=== PATIENT | female | born 1965 | race Caucasian/White ===

== ENCOUNTER 2019-05-16 16:00 | Outpatient (CLI) | payer OTHER, SELFPAY ==
--- NOTE | ~2019-05-16 | XR_ITS ---
EXAMINATION: XR chest 2V DATE: 05/16/2019 16:45 INDICATION: Hypertension TECHNIQUE: PA and lateral views of the chest are obtained. COMPARISON: None available FINDINGS: The lungs are free of acute opacities. A calcified nodule of the left lower lobe is consist ent with old granulomatous disease. There is no pleural effusion or pneumothorax. The cardiomediastin al silhouette is normal. There is moderate thoracic spondylosis. IMPRESSION: 1. No acute cardiopulmonary abnormality. Reviewed, dictated and finalized at location A. 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
[2019-05-16 16:38] LABS: Basophils Percent Auto 0.2 % (0.2-1.2); Eosinophils Absolute Auto 0.2 K/mm3 (0-0.3); Eosinophils Percent Auto 2.5 % (0-4.4); Hematocrit 40.6 % (37.0-47.0); Immature Granulocyte Absolute 0.02 K/mm3 (0.00-0.031); Immature Granulocyte Percent A 0.2 % (0-0.5); Lymphocytes Absolute Auto 2.96 K/mm3 (0.9-3.2); Lymphocytes Percent Auto 32.5 % (18.3-44.2); Mean Corpuscular Volume 87.3 fl (80-100); Mean Platelet Volume 11.8 fl (7.4-10.4); Monocytes Absolute Auto 0.7 K/mm3 (0.1-0.6); Monocytes Percent Auto 7.4 % (2.6-8.5); Neutrophils Absolute Auto 5.2 K/mm3 (1.3-6.7); Neutrophils Percent Auto 57.2 % (45.5-73.1); Platelet Count Result 310 k/mm3 (150-375); Red Blood Count 4.65 M/mm3 (4.2-5.4); Red Cell Distribution Width 14.1 % (11.5-14.5); White Blood Count 9.1 K/mm3 (4.5-10.0)
[2019-05-16 16:53] LABS: Alanine Aminotransferase 20 U/L (4-35); Albumin Level 4.1 g/dL (3.5-5.1); Alkaline Phosphatase 82 U/L (38-126); Aspartate Amino Transferase 21 U/L (14-36); Bilirubin,Total 0.7 mg/dL (0.2-1.3); Blood Urea Nitrogen 16 mg/dL (7-17); Calcium 9.2 mg/dL (8.4-10.2); Carbon Dioxide 23 mmol/L (22-30); Chloride 105 mmol/L (98-107); Estimated Glomerular Filt Rate > 60; Glucose 87 mg/dL (65-105); Sodium 138 mmol/L (137-145)
== END 2019-05-16 16:01 | disposition home or self-care (01) ==
PROVIDERS: PCP Family Medicine; Visit Provider Nurse Practitioner
DX: Z01.818 Encounter for other preprocedural examination (principal)
CPT/HCPCS: 36415; 71046; 80053; 85025

== ENCOUNTER 2019-06-05 12:27 | Emergency (ER) | payer OTHER, SELFPAY ==
[2019-06-05 12:42] VITALS: BP 146/90; PULSE 100; RESP 20; TEMP 36.2; O2SAT 100
--- NOTE | 2019-06-05 13:01 | ED.GENADULT ---
HPI - General Adult General Stated complaint: Left side pain when breaths Time Seen by Provider: 06/05/19 13:01 Source: patient and family History of Present Illness HPI narrative: Patient presents with left upper sided pain. Patient states the pain is 10 out of 10 and worse with inspiration. Patient states that she had tendon surgery 8 days ago to left lower ankle. Patient states shortness of breath and left-sided chest pain started 4 days ago. Patient states she is short of breath with exertion and has pain with inspiration. Patient states sometimes at night she is unable to get comfortable due to the pain in her left upper back. Patient denies any chest pain. Patient takes a baby aspirin daily and is not on any other blood thinners. Related Data Home Medications Medication Instructions Recorded Confirmed No Home Medications 04/30/19 04/30/19 Allergies Allergy/AdvReac Type Severity Reaction Status Date / Time No Known Allergies Allergy Unverified 07/10/16 11:54 Review of Systems Review of Systems: Narrative: CONSTITUTIONAL: Denies fever, chills, or sweats. EYES: Denies visual changes, redness, or discharge. ENT: Denies rhinorrhea, congestion, sore throat, or otalgia. CARDIOVASCULAR: Denies chest pain, palpitations, or edema. RESPIRATORY: Denies cough or dyspnea. GASTROINTESTINAL: Denies abdominal pain, nausea, vomiting, or diarrhea. GENITOURINARY: Denies dysuria or hematuria. SKIN: Denies rash or itching. MUSCULOSKELETAL: Denies back pain, joint pain, or myalgia. NEUROLOGIC: Denies headache, numbness, or weakness. PSYCHIATRIC: Denies anxiety or depression. All systems reviewed & are unremarkable except as noted in HPI and below PMFSH Family History Family History Grandparent Diabetes mellitus Family history of cardiovascular disease Social History Social History Smoking status: Never smoker Alcohol intake: current Comments At time of signature, agree with nursing past medical, surgical, social and family history. There is no relevant family history pertinent to the presenting complaint Exam Narrative: Exam Narrative: GENERAL: Well-appearing, well-nourished, and in no acute distress. HEAD: Normocephalic, atraumatic. EYES: PERRLA and EOMI. ENT: Nares clear, no rhinorrhea or epistaxis. Mucous membranes moist. NECK: Supple. CHEST: Clear to auscultation. No respiratory distress. Unable to reproduce left-sided chest wall pain HEART: Regular rate and rhythm. No murmur heard. Normal peripheral pulses. ABDOMEN: Soft, nontender, nondistended, normal active bowel sounds. EXTREMITIES: Normal range of motion. No edema. SKIN: Warm, dry, no rash. NEURO: No focal deficits. Alert and oriented x3. Lisa Coma Scale Eye Opening: Spontaneous 4 Lisa Coma Scale Motor: Obeys Commands 6 Lisa Coma Scale Verbal: Oriented 5 [place] Coma Scale Total 15 Course Vital Signs Vital signs: Vital Signs Temperature 36.2 C L 06/05/19 12:42 Pulse Rate 100 06/05/19 12:42 Respiratory Rate 20 06/05/19 12:42 Blood Pressure 146/90 H 06/05/19 12:42 Pulse Oximetry 100 06/05/19 12:42 Temperature 36.2 C L 06/05/19 12:42 Pulse Rate 100 06/05/19 12:42 Respiratory Rate 20 06/05/19 12:42 Blood Pressure 146/90 H 06/05/19 12:42 Pulse Oximetry 100 06/05/19 12:42 Addressed elevated BP today. Today's blood pressure higher than recommended range. Discussed importance of follow -up with PCP and possible buttermaker continuous churn effects/cardiovascular events related to HTN. Currently patient denies headache, dizziness, vision changes, CP or shortness of breath. Medical Decision Making Medical Records Medical records reviewed: Yes I reviewed the patient's medical records. Vital Signs Vital Signs: Vital Signs Temperature 36.2 C L 06/05/19 12:42 Pulse Rate 100 06/05/19 12:42 Respiratory Rate 05/18
== END 2019-06-05 13:05 | disposition short-term general hospital (02) ==
PROVIDERS: Emergency Provider Nurse Practitioner Family; PCP Family Medicine
DX: R06.02 Shortness of breath (principal); R07.1 Chest pain on breathing
CPT/HCPCS: 99212; G0463

== ENCOUNTER 2019-06-05 13:40 | Emergency (ER) | payer OTHER, SELFPAY ==
--- NOTE | ~2019-06-05 | XR_ITS ---
XR chest 2V DATE: 06/05/2019 14:13 INDICATION: Sharp left-sided chest pain. Pain on inspiration. TECHNIQUE: AP and lateral views COMPARISON: 05/16/2019 PA and lateral chest there is a left basilar infiltrate and/atelectasis, involv ing lingula and particularly the lower lobe, new since 05/16/2019. The lungs otherwise appear clear. N o pleural effusion or pulmonary vascular congestion or pneumothorax. FINDINGS: There is left basilar infiltrate and/atelectasis involving the lingula and particularly lef t lower lobe, new since 05/16/2019. Focal infiltrate or atelectasis is suggested in the anterior segment of the left upper lobe. The lungs otherwise appear clear. No pleural effusion or pulmonary vascular congestion or pneumothorax. Normal heart size. Diffuse idiopathic skeletal hyperostosis of the thoracic spine. IMPRESSION: New left-sided infiltrates since 05/16/2019, most prominent at the lung bases, including l ingula and left lower lobe Reviewed, dictated and finalized at location B. IMPRESSION: New left-sided infiltrates since 05/16/2019, most prominent at the l joe bases, including lingula and left lower lobe
--- NOTE | ~2019-06-05 | CT_ITS ---
EXAMINATION: CTA chest PE protocol DATE: 06/05/2019 15:07 INDICATION: Postoperative chest pain with breathing TECHNIQUE: Computed tomography (CT) pulmonary angiogram of the chest was performed with 100 mL Omnipa que-350 intravenous contrast. Additional 3D reconstructions utilizing coronal maximum intensity proje ction (MIP) were performed. Automated exposure control and iterative reconstruction technique were em ployed. The dose-length product was 939.99 mGy-cm. COMPARISON: None FINDINGS: Good contrast opacification of the pulmonary arteries. There is mild streak artifact from dense contr ast in the superior vena cava and right atrium. Mild scattered respiratory motion artifact. Together this decreases sensitivity and specificity in some of the smaller segmental and subsegmental pulmonar y arteries most prominently at the right lower lung zone. New volume loss in the left hemithorax with mild elevation of the left hemidiaphragm. Bands of consolidation extending horizontally across the l eft lower lobe and lingula consistent with discoid atelectasis. There appears be relatively uniform p arenchymal enhancement of the atelectatic portions of the lung. There is subtle asymmetry to the degr ee of contrast enhancement throughout the pulmonary arteries and veins in the basilar segments of the left lower lobe relative to the right lower lobe likely related to compensatory shunting away from t he regions of atelectasis in the left basilar segments. There are a few small regions of relatively s harply defined bands of decreased attenuation extending across several of the vessels in the left inf rahilar region with configuration favoring streak artifact over pulmonary emboli. Minimal linear disc oid atelectasis in the right lower lobe. Bilateral scattered calcified pulmonary nodules consistent w ith old granulomatous disease. Small left pleural effusion. No pulmonary edema or pneumothorax. Heart size is normal. No evident leftward bowing of the ventricular septum to suggest right heart strain. No pericardial effusion. Thoracic aorta is normal in caliber with no dissection. There are few scatte red normal-sized bilateral hilar lymph nodes which are likely reactive. No pathologically enlarged th oracic lymphadenopathy. Visualized upper abdomen is unremarkable. Mild thoracic spondylosis. IMPRESSION: 1. Subtle asymmetry to the degree of enhancement in the vessels in the left lower lobe with bands of decreased attenuation extending across several of the vessels in the infrahilar region. Differential includes streak artifact versus pulmonary emboli with the configuration of the decreased attenuation favoring the former. 2. Bandlike consolidation in the left lower lobe with corresponding volume loss consistent with atele ctasis. 3. Small left pleural effusion. Reviewed, dictated and finalized at location A. IMPRESSION: 1. Subtle asymmetry to the degree of enhancement in the vessels in the left low er lobe with bands of decreased attenuation extending across several of the ves sels in the infrahilar region. Differential includes streak artifact versus pul monary emboli with the configuration of the decreased attenuation favoring the former. 2. Bandlike consolidation in the left lower lobe with corresponding volume loss consistent with atelectasis. 3. Small left pleural effusion.
[2019-06-05 13:47] VITALS: BP 162/113; PULSE 80; RESP 18; TEMP 36.7; O2SAT 98
--- NOTE | 2019-06-05 13:49 | ED.GENADULT ---
HPI - General Adult General Chief complaint: Chest Pain Stated complaint: sent from urgent care, pain with breathing Time Seen by Provider: 06/05/19 13:44 Source: patient Mode of arrival: ambulatory Limitations: no limitations History of Present Illness HPI narrative: Patient was referred to the emergency room from urgent care for evaluation of possible pulmonary embolism. Patient has a cast on her left leg as result of having a tendon repair on Monday, 8 days ago. She developed some chest pain and burning on Monday, she spoke with hospital that did her surgery. She was weaning her Percocet at that time and they prescribed her gabapentin for muscular pain. As the day progressed yesterday her pain became worse especially with deep breathing and today she became worried for pleurisy or pneumonia. She has no fever, and no cough. Onset (ago): day(s) Severity: moderate Quality: burning Pain Consistency: other (with deep breath) Relieving factors: none Exacerbating factors: movement Associated symptoms: denies other symptoms Treatments prior to arrival: other (prescribed pain medications.) Related Data Home Medications Medication Instructions Recorded Confirmed gabapentin 300 mg PO TID 06/05/19 06/05/19 oxycodone-acetaminophen 1 tablet PO Q6H PRN 06/05/19 06/05/19 Allergies Allergy/AdvReac Type Severity Reaction Status Date / Time No Known Allergies Allergy Verified 06/05/19 14:35 Review of Systems Review of Systems: All systems reviewed & are unremarkable except as noted in HPI and below (denies left calf pain.) [facility] Family History Family History Grandparent Diabetes mellitus Family history of cardiovascular disease Social History Social History (Updated 06/05/19 @ 14:08 by Alyson Marrero PA-C) Smoking status: Never smoker Alcohol intake: current Substance use: never Living arrangements: with family Occupation/Education: occupation 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 Exam Const: General: no acute distress and alert Orientation/consciousness: patient oriented x3 HENMT: Head: normal to inspection Eyes: Pupils: Equal, round and reactive pupils present Chest: Chest palpation & inspection: normal inspection of the chest Resp: Effort & Inspection: normal respiratory effort Auscultation: rales on the left in the mid lung moreno and in the lower lung moreno Cardio: Rate: regular rate Rhythm: regular rhythm GI: GI Palp: Yes Soft to palpation Skin: General skin exam: normal color Rashes: no rashes Neuro: General: patient oriented x3 and moves all extremities Extrem: Left lower extremity: normal capillary refill (in toes, toes are warm) Psych: Mental Status: mental status grossly normal Course Course Emergency Course: CT results reviewed again with radiology to try to elicit a more definitive diagnosis. Spoke with Dr. Copeland, patient's primary care physician and it was decided that we would treat with Lovenox given patient's risk factors. She would like the patient follow-up in 1 week. Plan discussed with patient and her . Discharge Plan Discharge Clinical Impression: Atelectasis, left Pulmonary emboli Qualifiers: Pulmonary embolism type: unspecified Chronicity: acute Acute cor pulmonale presence: without acute cor pulmonale Qualified Code(s): I26.99 - Other pulmonary embolism without acute cor pulmonale Patient Disposition: Home, Self-Care Condition: Stable Instructions: Antibiotic Form, Pulmonary Embolism (ED), How to Give a Subcutaneous Injection (DC) Additional Instructions: Stop taking your aspirin. Take your Lovenox as prescribed, start in the morning. Follow-up with your primary care physician in 1 week. You may continue pain medications as needed. Use your incentive spirometer for deep breathing and coughing. Return emergency room should you have significant ches
--- NOTE | 2019-06-05 13:50 | ECG_ITS ---
Measurements Intervals [place] Rate: 80 P: 31 CA: 113 QRS: 14 QRSD: 92 T: 5 QT: 381 QTc: 440 Interpretive Statements SINUS RHYTHM WITH SHORT CA INTERVAL BORDERLINE ST-T WAVE ABNORMALITY- INFERIOR LEADS BORDERLINE ECG Electronically Signed On 06-05-2019 13:53:39 CDT by Ji Woodall D.O.
[2019-06-05] MEDS: ASPIRIN 81 MG CHEWABLE TABLET 324 MG PO (14:06)
[2019-06-05 14:20] LABS: Basophils Percent Auto 0.3 % (0.2-1.2); Eosinophils Absolute Auto 0.2 K/mm3 (0-0.3); Eosinophils Percent Auto 2.1 % (0-4.4); Hematocrit 37.1 % (37.0-47.0); Hemoglobin 11.8 g/dL (12.0-15.0); Immature Granulocyte Absolute 0.06 K/mm3 (0.00-0.031); Immature Granulocyte Percent A 0.6 % (0-0.5); Immature Platelet Fraction Pct 5.8 % (0.9-11.2); Lymphocytes Absolute Auto 2.79 K/mm3 (0.9-3.2); Lymphocytes Percent Auto 29.6 % (18.3-44.2); Mean Corpuscular HGB Conc 31.8 g/dl (32-36); Mean Corpuscular Hemoglobin 28.1 pg (26-34); Mean Corpuscular Volume 88.3 fl (80-100); Mean Platelet Volume 11.9 fl (7.4-10.4); Monocytes Absolute Auto 0.6 K/mm3 (0.1-0.6); Monocytes Percent Auto 6.5 % (2.6-8.5); Neutrophils Absolute Auto 5.7 K/mm3 (1.3-6.7); Neutrophils Percent Auto 60.9 % (45.5-73.1); Platelet Count Result 354 k/mm3 (150-375); Red Cell Distribution Width 14.1 % (11.5-14.5); White Blood Count 9.4 K/mm3 (4.5-10.0)
[2019-06-05 14:30] LABS: Blood Urea Nitrogen 17 mg/dL (7-17); Calcium 9.2 mg/dL (8.4-10.2); Carbon Dioxide 28 mmol/L (22-30); Chloride 103 mmol/L (98-107); Estimated Glomerular Filt Rate > 60; Glucose 98 mg/dL (65-105); Potassium 4.2 mmol/L (3.4-5.0); Sodium 136 mmol/L (137-145)
--- NOTE | 2019-06-05 14:30 | PC.NURSE ---
Called lab to add on d-dimer, PT INR PTT
[2019-06-05 14:42] LABS: Troponin I < 0.012 ng/mL (0.000-0.034)
[2019-06-05 15:09] LABS: INR 0.9; Prothrombin Time 11.3 Seconds (11.1-14.7)
[2019-06-05 16:09] VITALS: BP 151/67; PULSE 72; O2SAT 100
[2019-06-05] MEDS: ENOXAPARIN 80 MG/0.8 ML SYRINGE 125 MG SUB-Q (16:22)
[2019-06-05 16:51] VITALS: BP 142/73; PULSE 71; RESP 17; O2SAT 100
== END 2019-06-05 16:54 | disposition home or self-care (01) ==
PROVIDERS: Physician Assistant; Emergency Provider Emergency Medicine; PCP Family Medicine
DX: I26.99 Other pulmonary embolism without acute cor pulmonale (principal)
CPT/HCPCS: 36415; 71046; 71275; 80048; 84484; 85025; 85055; 85380; 85610; 85730; 93005; 96372; 99284; A9270; J1650; Q9967

== ENCOUNTER 2019-08-22 12:45 | Outpatient (CLI) | payer OTHER, SELFPAY ==
--- NOTE | ~2019-08-22 | US_ITS ---
EXAMINATION: US venous doppler [facility] DATE: 08/22/2019 14:58 INDICATION: Left lower limb swelling. TECHNIQUE: Grayscale ultrasound images without and with compression and Doppler ultrasound images of the left lower extremity veins were obtained. COMPARISON: None. FINDINGS: The visualized portions of left common femoral vein, profunda (deep) femoral vein, femoral vein, popl iteal vein, peroneal veins, posterior tibial veins, and greater saphenous vein outflow are patent. IMPRESSION: 1. No deep venous thrombosis. Reviewed, dictated and finalized at location A.
--- NOTE | 2019-08-22 13:09 | ECHO_ITS ---
Patient Info Name: Jennifer Walker Age: 53 years : 1965 Gender: Female Ht: 70 in Wt: 300 lbs BSA: 2.66 m2 HR: 82 bpm BP: 178 / 95 mmHg Technical Quality: Fair Exam Date: 08/22/2019 1:29 PM Exam Location: [facility] Patient Status: Outpatient Admit Date: 08/22/2019 Staff Ordering Physician: Libby Peralta MD Fabric Stretcher: Kentrell Martinez, JOSÉ MIGUEL, RT Attending Provider: Libby Peralta MD Referring Physician: Kathryn NAJERA; Exam Type: CA echo doppler color flow Study Info Indications I26.99 - Other pulmonary embolism without acute cor pulmonale Complete two-dimensional, color flow and Doppler transthoracic echocardiogram is performed. Summary 1. Left ventricular chamber dimension is mildly enlarged. 2. Left ventricular systolic function is normal, estimated at 60-65%. 3. The left ventricular diastolic function is normal. 4. E/e' 6 is not elevated. 5. Global longitudinal strain is normal at -19.3%. 6. Left atrial chamber dimension is mildly enlarged. Left Ventricle E/e' 6 is not elevated. Global longitudinal strain is normal at -19.3%. Left ventricular chamber dimension is mildly enlarged. Left ventricular systolic function is normal, estimated at 60-65%. The left ventricular diastolic function is normal. Right Ventricle Right ventricular chamber dimension is normal. Right ventricular systolic function is normal. Left Atria Left atrial chamber dimension is mildly enlarged. Right Atria Right atrial chamber dimension is normal. Aortic Valve The aortic valve is trileaflet. There is no aortic valve stenosis. There is no aortic valve regurgitation. Pulmonic Valve There is no pulmonic regurgitation. Mitral Valve There is no mitral valve stenosis. There is no mitral valve regurgitation. Tricuspid Valve There is no tricuspid valve regurgitation. Pericardium/Pleural There is no pericardial effusion. Inferior Vena Cava Normal inferior vena cava with >50% collapse upon inspiration consistent with normal right atrial pressure, 5 mmHg. Aorta The aortic root size at the sinus of Valsalva is normal. Left Ventricular Outflow Tract Name Value Normal LVOT 2D LVOT Diameter 2.0 cm LVOT Doppler LVOT Peak Gradient 4 mmHg LVOT Mean Gradient 3 mmHg LVOT VTI 25 cm LVOT VTI/AV VTI Ratio 0.7 LVOT Stroke Volume 78 ml LVOT CO 5.8 l/min LVOT CI 2.2 l/min/m2 Mitral Valve Name Value Normal MV Doppler MV Decel Bonner 383 cm/s2 MV PHT 62 ms MV Area (PHT) 3.6 cm2 4.0-5.0 MV Diastolic Function
== END 2019-08-22 12:46 | disposition home or self-care (01) ==
PROVIDERS: PCP Family Medicine; Visit Provider Family Medicine
DX: M76.822 Posterior tibial tendinitis, left leg (principal); Q66.6 Other congenital valgus deformities of feet; I26.99 Other pulmonary embolism without acute cor pulmonale
CPT/HCPCS: 93306; 93971

== ENCOUNTER 2019-09-05 07:42 | Outpatient (CLI) | payer OTHER, SELFPAY ==
[2019-09-05 08:30] LABS: Alanine Aminotransferase 18 U/L (4-35); Albumin Level 4.3 g/dL (3.5-5.1); Alkaline Phosphatase 104 U/L (38-126); Aspartate Amino Transferase 24 U/L (14-36); Bilirubin,Total 0.6 mg/dL (0.2-1.3); Blood Urea Nitrogen 24 mg/dL (7-17); Calcium 8.9 mg/dL (8.4-10.2); Carbon Dioxide 22 mmol/L (22-30); Chloride 109 mmol/L (98-107); Cholesterol 224 mg/dL (0-200); Estimated Glomerular Filt Rate > 60; Glucose 99 mg/dL (65-105); HDL Direct 62 mg/dL; Potassium 4.6 mmol/L (3.4-5.0); Sodium 139 mmol/L (137-145); Triglycerides 80 mg/dL (<150)
[2019-09-05 08:38] LABS: D Dimer 0.41 ug/mL (<0.48)
[2019-09-05 08:40] LABS: LDL Cholesterol Direct 126 mg/dL
== END 2019-09-05 07:43 | disposition home or self-care (01) ==
LOC: ANHLAB 07:44
PROVIDERS: PCP Family Medicine; Visit Provider Family Medicine
DX: I26.99 Other pulmonary embolism without acute cor pulmonale (principal)
CPT/HCPCS: 36415; 80053; 80061; 85380

== ENCOUNTER 2023-07-29 14:18 | Emergency (ER) | payer OTHER, SELFPAY ==
--- NOTE | ~2023-07-29 | XR_ITS ---
EXAM: XR foot RT min 3V DATE: 07/29/2023 15:00 HISTORY: foot pain NON INJ RT MID TO 4TH M.T. KNOT/BUMP . COMPARISON: None available. FINDINGS: Normal mineralization. No fracture or dislocation. No lytic or blastic lesion. Joint space s are Achilles and plantar enthesopathy. Scattered degenerative changes, mild in multiple midfoot anne nts and moderate at the first MTP joint. Degenerative subchondral cysts in the fourth metatarsal head . Splayed third and fourth digits. No erosion or periosteal change. Soft tissues within normal limits . IMPRESSION: No acute osseous finding in the right foot. 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 Reviewed, dictated and finalized at location K. IMPRESSION: No acute osseous finding in the right foot. Splayed third and fourt h digits as can occur with Melvin's neuroma.
[2023-07-29 14:21] VITALS: BP 180/83; PULSE 100; RESP 16; TEMP 36.4; O2SAT 100
--- NOTE | 2023-07-29 15:38 | ED.EXTPRO ---
HPI - Extremity Problem General Chief complaint: Extremity Problem,Nontraumatic Stated complaint: Wound on Right Foot Time Seen by Provider: 07/29/23 14:27 Source: patient Mode of arrival: ambulatory Limitations: no limitations History of Present Illness HPI Narrative: 57-year-old with a history of PE on apixaban here with complaints of pain and swelling to her right foot she noticed it few days ago. No history of trauma. She states that it hurts when she ambulates. Complaint: other (right foot pain) Onset (ago): week(s) (1) Location: right Quality: aching Radiation: none Relieving factors: nothing Exacerbating factors: nothing Associated symptoms: denies other symptoms Related Data Home Medications Medication Instructions Recorded Confirmed ibuprofen 800 mg tablet 800 mg PO TID 09/06/19 11/26/19 Allergies Allergy/AdvReac Type Severity Reaction Status Date / Time No Known Allergies Allergy Verified 11/26/19 08:43 Review of Systems Review of Systems: All systems reviewed & are unremarkable except as noted in HPI and below Constitutional: Constitutional: Reports no additional constitutional complaints Eyes: Eyes: Reports no additional eye complaints ENT: Reports system reviewed and no additional complaints, except as documented Cardiovascular: Cardiovascular: Reports no additional cardiovascular complaints Respiratory: Respiratory: Reports no additional respiratory complaints Musculoskeletal: Musculoskeletal: Reports as per HPI Neurologic: Reports system reviewed and no additional complaints, except as documented [facility] Past Medical History Medical History Environmental allergies Pulmonary embolism (~05/2019) Surgical History Surgical History S/P left knee arthroscopy (~1982) Status post left foot surgery (~05/2019) post tibial tendon repair due to rupture 05/2019 Family History Family History Grandparent Diabetes mellitus Family history of cardiovascular disease Social History Social History Smoking status: Never smoker Second hand tobacco smoke exposure: No Alcohol intake: never Substance use: never Living arrangements: with family Occupation/Education: occupation 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 HEAD: Normocephalic, atraumatic. EYES: PERRLA and EOMI. ENT: Nares clear, no rhinorrhea or epistaxis. Mucous membranes moist. NECK: Supple. CHEST: Clear to auscultation. No respiratory distress. HEART: Regular rate and rhythm. No murmur heard. Normal peripheral pulses. EXTREMITIES: Normal range of motion. No edema. Examination of the right foot shows small swelling between the 3rd and 4th metatarsals tender on palpation no redness SKIN: Warm, dry, no rash. NEURO: No focal deficits. Alert and oriented x3. PSYCH: Normal mood and affect. Course Course Emergency Course: Notified patient about her x-ray findings. Patient states that she has an appointment with the floriculture teacher on the of this month. Advised her to take pain medication Vital Signs Vital signs: Vital Signs Temperature 36.4 C 07/29/23 14:21 Pulse Rate 100 07/29/23 14:21 Respiratory Rate 16 07/29/23 14:21 Blood Pressure 180/83 H 07/29/23 14:21 Pulse Oximetry 100 07/29/23 14:21 Oxygen Delivery Room Air 07/29/23 14:21 Temperature 36.4 C 07/29/23 14:21 Pulse Rate 100 07/29/23 14:21 Respiratory Rate 16 07/29/23 14:21 Blood Pressure 180/83 H 07/29/23 14:21 Pulse Oximetry 100 07/29/23 14:21 Oxygen Delivery Room Air 07/29/23 14:21 MDM - Extremity (Nontraumatic) MDM Narrative Me
[2023-07-29 15:51] VITALS: PULSE 73; RESP 18; TEMP 36.8; O2SAT 99
== END 2023-07-29 15:53 | disposition home or self-care (01) ==
PROVIDERS: Emergency Provider Family Medicine; PCP Podiatrist Foot & Ankle Surgery
DX: M79.671 Pain in right foot (principal); G57.61 Lesion of plantar nerve, right lower limb; Z86.711 Personal history of pulmonary embolism; Z79.01 Long term (current) use of anticoagulants
CPT/HCPCS: 73630; 99283